=== PATIENT | male | born 1950 | race Caucasian/White ===

== ENCOUNTER 2017-11-10 09:01 | Inpatient (IN) | payer MEDICARE, MEDICAID ==
[2017-11-07 11:09] LABS: BASOPHILS % (AUTO) 0.2 % (0-1); EOSINOPHILS # (AUTO) 0.1 X10'3 (0-0.9); EOSINOPHILS % (AUTO) 1.7 % (0-6); LYMPHOCYTES # (AUTO) 1.3 X10'3 (1.1-4.8); LYMPHOCYTES % (AUTO) 21.8 % (21-51); MEAN CORPUSCULAR HEMOGLOBIN 29.3 PG (27.0-31.0); MEAN CORPUSCULAR HGB CONC 33.6 % (33.0-36.5); MEAN CORPUSCULAR VOLUME 87.3 FL (78-98); MEAN PLATELET VOLUME 7.4 FL (7.4-10.4); MONOCYTES # (AUTO) 0.5 X10'3 (0-0.9); MONOCYTES % (AUTO) 8.7 % (2-12); NEUTROPHILS # (AUTO) 3.9 X10'3 (1.8-7.7); NEUTROPHILS % (AUTO) 67.6 % (42-75); PRE OP PLATELET COUNT 241 X10'3 (140-440); RED BLOOD COUNT 3.75 X10'6 (4.70-6.10); RED CELL DISTRIBUTION WIDTH 15.1 % (11.5-14.5)
[2017-11-07 11:21] LABS: PRE OP HEMATOCRIT 32.8 % (42.0-52.0)
[2017-11-07 11:23] LABS: PRE OP PROTIME 10.3 SECONDS (9.0-12.0)
[2017-11-07 11:26] LABS: ALBUMIN 3.5 G/DL (3.4-5.0); ALKALINE PHOSPHATASE 81 IU/L (46-116); BLOOD UREA NITROGEN 24 MG/DL (7-18); BUN/CREATININE RATIO 19.8 (5.4-32.0); CHLORIDE 102 MMOL/L (99-107); CREATININE 1.21 MG/DL (0.60-1.10); PRE OP ALT 13 U/L (30-65); PRE OP ANION GAP 4 (8-16); PRE OP AST 9 U/L (10-37); PRE OP BILIRUB, TOTAL 0.4 MG/DL (0.0-1.0); PRE OP GLUCOSE 90 MG/DL (70-104); PRE OP POTASSIUM 4.3 MMOL/L (3.4-5.1); PRE OP SODIUM 137 MMOL/L (135-145); TOTAL CARBON DIOXIDE 30.7 MMOL/L (24-32); eGFR 60 ML/MIN
[2017-11-10] VITALS (15 sets, daily range): BP systolic 123–187; BP diastolic 63–114
[~2017-11-10] VITALS: Ht 180.3 cm; Wt 64.4 kg
[~2017-11-10 09:01] MED LIST: ASPI-1265 PO; ATOR40TA72 PO; CARV6.253 PO; DOCUMENT DATE & TIME OF BETA-BLOCKER PO ONE; HYDR-3964 PO; ONDA8TAB13 PO; PANT40TA4 PO; albuterol 2.5 MG/3 ML nebule NEB ONE; ceFAZolin 1GM/D5W- ADD-VANTAGE 50 ML IV ONE; famotidine 20mg tablet PO ONE; neomy sulf/polymyxin B sulf. GU irrigation 1ml amp IR ONE; ringers solution, lacted 1,000 ML IV SCH
[2017-11-10] MEDS: ringers solution, lacted 1,000 ML IV SCH ×2 (11:16→20:40)
[2017-11-10] MEDS ORDERED: sevoflurane 250ml liquid IH ONE (11:20)
[2017-11-10] MEDS ORDERED: dexamethasone sod phosphate 10mg/ml inj ONE (11:20)
[2017-11-10] MEDS ORDERED: ondansetron/PF 4mg/2ml inj IV PRN (11:20)
[2017-11-10] MEDS ORDERED: meperidine/PF 25mg/ml syringe IV PRN ×3 (11:20)
[2017-11-10] MEDS ORDERED: proCHLORperazine 10 MG/2 ml inj IV PRN (11:20)
[2017-11-10] MEDS ORDERED: morphine 4 MG/ML inj SYRINge IV PRN ×2 (11:20)
[2017-11-10] MEDS ORDERED: fentaNYL/PF 50MCG/1 ML 2ML syringe ONE ×2 (11:27→12:33)
[2017-11-10] MEDS ORDERED: midazolam 2 mg/2 ml injection ONE (11:27)
[2017-11-10] MEDS ORDERED: propofol inj 20 ML IV ONE (11:29)
[2017-11-10] MEDS ORDERED: opium/belladonna alkaloids No. 15A 30mg rectal suppository RC PRN (13:40)
[2017-11-10] MEDS: ceFAZolin 1GM/D5W- ADD-VANTAGE 50 ML IV SCH (15:20)
[2017-11-10] MEDS ORDERED: carvedilol 6.25mg tablet PO SCH (19:05)
[2017-11-10] MEDS ORDERED: carvedilol 6.25mg tablet PO ONE (19:05)
[2017-11-10] MEDS: pantoprazole 40mg Tablet.DR PO SCH (20:24)
[2017-11-10] MEDS: ondansetron/PF 4mg/2ml inj IV PRN (20:24)
[2017-11-10] MEDS: HYDROcodone/acetaminophen 10/325mg tab PO PRN (20:26)
[2017-11-10] MEDS ORDERED: hydrALAZINE 20mg/ml inj. IV ONE (21:00)
[2017-11-10] MEDS ORDERED: hydrALAZINE 20mg/ml inj. IV PRN (21:00)
[2017-11-11] VITALS: BP 125/77
[2017-11-11] MEDS: ceFAZolin 1GM/D5W- ADD-VANTAGE 50 ML IV SCH ×2 (00:05→08:12)
[2017-11-11 04:00] VITALS: BP 118/67
[2017-11-11 05:50] LABS: BASOPHILS % (AUTO) 0.1 % (0-1); EOSINOPHILS # (AUTO) 0.1 X10'3 (0-0.9); EOSINOPHILS % (AUTO) 0.7 % (0-6); HEMOGLOBIN 9.5 g/dl (14.0-17.9); MEAN CORPUSCULAR HEMOGLOBIN 29.1 PG (27.0-31.0); MEAN CORPUSCULAR HGB CONC 33.9 % (33.0-36.5); MEAN CORPUSCULAR VOLUME 85.9 FL (78-98); MEAN PLATELET VOLUME 7.5 FL (7.4-10.4); MONOCYTES # (AUTO) 0.7 X10'3 (0-0.9); MONOCYTES % (AUTO) 8.1 % (2-12); NEUTROPHILS # (AUTO) 7.1 X10'3 (1.8-7.7); NEUTROPHILS % (AUTO) 80.1 % (42-75); PLATELET COUNT 221 X10'3 (140-440); RED BLOOD COUNT 3.26 X10'6 (4.70-6.10); RED CELL DISTRIBUTION WIDTH 14.9 % (11.5-14.5); WHITE BLOOD COUNT 8.9 X10'3 (4.5-11.0)
[2017-11-11 06:10] LABS: ALBUMIN 2.8 G/DL (3.4-5.0); ANION GAP 9 (8-16); BLOOD UREA NITROGEN 23 MG/DL (7-18); BUN/CREATININE RATIO 17.3 (5.4-32.0); CALCIUM 8.4 MG/DL (8.5-10.1); CHLORIDE 101 MMOL/L (99-107); CREATININE 1.33 MG/DL (0.60-1.10); GLUCOSE 123 MG/DL (70-104); POTASSIUM 4.6 MMOL/L (3.5-5.1); SODIUM 135 MMOL/L (135-145); TOTAL CARBON DIOXIDE 25.1 MMOL/L (24-32); eGFR 54 ML/MIN
[2017-11-11 07:37] VITALS: BP 113/62
[2017-11-11] MEDS: docusate sod 250mg capsule PO SCH (08:12)
[2017-11-11] MEDS: carvedilol 6.25mg tablet PO SCH (08:12)
[2017-11-11] MEDS: pantoprazole 40mg Tablet.DR PO SCH ×2 (08:12→20:14)
[2017-11-11] MEDS: atorvastatin 20mg tablet PO SCH (08:12)
[2017-11-11] MEDS: HYDROcodone/acetaminophen 10/325mg tab PO PRN ×2 (08:12→20:17)
[2017-11-11 12:44] VITALS: BP 103/59
[2017-11-11 19:00] VITALS: BP 135/69
[2017-11-12] VITALS: BP 117/64
[2017-11-12] MEDS: HYDROcodone/acetaminophen 10/325mg tab PO PRN ×2 (04:54→19:14)
[2017-11-12 05:49] LABS: BASOPHILS % (AUTO) 0.2 % (0-1); EOSINOPHILS # (AUTO) 0.1 X10'3 (0-0.9); EOSINOPHILS % (AUTO) 1.1 % (0-6); HEMATOCRIT 25.2 % (42.0-52.0); HEMOGLOBIN 8.6 g/dl (14.0-17.9); LYMPHOCYTES # (AUTO) 1.3 X10'3 (1.1-4.8); LYMPHOCYTES % (AUTO) 18.7 % (21-51); MEAN CORPUSCULAR HEMOGLOBIN 29.4 PG (27.0-31.0); MEAN CORPUSCULAR HGB CONC 34.1 % (33.0-36.5); MEAN CORPUSCULAR VOLUME 86.4 FL (78-98); MEAN PLATELET VOLUME 7.7 FL (7.4-10.4); MONOCYTES # (AUTO) 0.7 X10'3 (0-0.9); MONOCYTES % (AUTO) 10.6 % (2-12); NEUTROPHILS # (AUTO) 4.9 X10'3 (1.8-7.7); NEUTROPHILS % (AUTO) 69.4 % (42-75); PLATELET COUNT 193 X10'3 (140-440); RED BLOOD COUNT 2.92 X10'6 (4.70-6.10); RED CELL DISTRIBUTION WIDTH 15.5 % (11.5-14.5)
[2017-11-12 06:04] LABS: ALBUMIN 2.9 G/DL (3.4-5.0); ANION GAP 6 (8-16); BLOOD UREA NITROGEN 25 MG/DL (7-18); BUN/CREATININE RATIO 13.9 (5.4-32.0); CALCIUM 8.5 MG/DL (8.5-10.1); CHLORIDE 102 MMOL/L (99-107); GLUCOSE 95 MG/DL (70-104); POTASSIUM 3.9 MMOL/L (3.5-5.1); SODIUM 138 MMOL/L (135-145); TOTAL CARBON DIOXIDE 29.6 MMOL/L (24-32); eGFR 38 ML/MIN
[2017-11-12 07:00] VITALS: BP 100/63
[2017-11-12] MEDS: ondansetron 4mg rapidly disintigrating tab PO PRN ×2 (07:36→17:27)
[2017-11-12] MEDS: pantoprazole 40mg Tablet.DR PO SCH ×2 (09:25→19:55)
[2017-11-12] MEDS: atorvastatin 20mg tablet PO SCH (09:25)
[2017-11-12] MEDS: carvedilol 6.25mg tablet PO SCH (09:25)
[2017-11-12] MEDS: docusate sod 250mg capsule PO SCH (09:25)
[2017-11-12 11:50] VITALS: BP 98/68
[2017-11-12 12:46] LABS: BASOPHILS % (AUTO) 0.3 % (0-1); EOSINOPHILS # (AUTO) 0.1 X10'3 (0-0.9); EOSINOPHILS % (AUTO) 1.7 % (0-6); HEMOGLOBIN 8.4 g/dl (14.0-17.9); LYMPHOCYTES # (AUTO) 1.1 X10'3 (1.1-4.8); LYMPHOCYTES % (AUTO) 19.3 % (21-51); MEAN CORPUSCULAR HEMOGLOBIN 29.1 PG (27.0-31.0); MEAN CORPUSCULAR HGB CONC 33.5 % (33.0-36.5); MEAN CORPUSCULAR VOLUME 86.9 FL (78-98); MONOCYTES # (AUTO) 0.6 X10'3 (0-0.9); MONOCYTES % (AUTO) 11.4 % (2-12); NEUTROPHILS # (AUTO) 3.8 X10'3 (1.8-7.7); NEUTROPHILS % (AUTO) 67.3 % (42-75); PLATELET COUNT 197 X10'3 (140-440); RED BLOOD COUNT 2.87 X10'6 (4.70-6.10); RED CELL DISTRIBUTION WIDTH 15.1 % (11.5-14.5); WHITE BLOOD COUNT 5.6 X10'3 (4.5-11.0)
[2017-11-12 19:00] VITALS: BP 116/72
[2017-11-13] VITALS (21 sets, daily range): BP systolic 100–165; BP diastolic 58–101
[2017-11-13 05:43] LABS: BASOPHILS % (AUTO) 0.3 % (0-1); EOSINOPHILS # (AUTO) 0.2 X10'3 (0-0.9); EOSINOPHILS % (AUTO) 2.6 % (0-6); HEMATOCRIT 24.3 % (42.0-52.0); HEMOGLOBIN 8.2 g/dl (14.0-17.9); LYMPHOCYTES # (AUTO) 1.3 X10'3 (1.1-4.8); LYMPHOCYTES % (AUTO) 21.3 % (21-51); MEAN CORPUSCULAR HEMOGLOBIN 29.3 PG (27.0-31.0); MEAN CORPUSCULAR HGB CONC 33.9 % (33.0-36.5); MEAN CORPUSCULAR VOLUME 86.5 FL (78-98); MEAN PLATELET VOLUME 7.7 FL (7.4-10.4); MONOCYTES # (AUTO) 0.7 X10'3 (0-0.9); MONOCYTES % (AUTO) 12.1 % (2-12); NEUTROPHILS # (AUTO) 3.8 X10'3 (1.8-7.7); NEUTROPHILS % (AUTO) 63.7 % (42-75); PLATELET COUNT 194 X10'3 (140-440); RED BLOOD COUNT 2.81 X10'6 (4.70-6.10)
[2017-11-13 05:54] LABS: ALBUMIN 2.9 G/DL (3.4-5.0); ANION GAP 6 (8-16); BLOOD UREA NITROGEN 22 MG/DL (7-18); BUN/CREATININE RATIO 12.9 (5.4-32.0); CALCIUM 8.1 MG/DL (8.5-10.1); CHLORIDE 99 MMOL/L (99-107); CREATININE 1.71 MG/DL (0.60-1.10); GLUCOSE 93 MG/DL (70-104); SODIUM 134 MMOL/L (135-145); TOTAL CARBON DIOXIDE 28.8 MMOL/L (24-32); eGFR 40 ML/MIN
[2017-11-13] MEDS: ondansetron/PF 4mg/2ml inj IV PRN (06:37)
[2017-11-13] MEDS: HYDROcodone/acetaminophen 10/325mg tab PO PRN ×2 (06:40→16:36)
[2017-11-13] MEDS: pantoprazole 40mg Tablet.DR PO SCH ×2 (07:51→19:22)
[2017-11-13] MEDS: atorvastatin 20mg tablet PO SCH (07:51)
[2017-11-13] MEDS: carvedilol 6.25mg tablet PO SCH (07:51)
[2017-11-13] MEDS: docusate sod 250mg capsule PO SCH (07:52)
[2017-11-13] MEDS ORDERED: famotidine 20mg tablet PO ONE (10:45)
[2017-11-13 10:58] LABS: BASOPHILS % (AUTO) 0.4 % (0-1); EOSINOPHILS # (AUTO) 0.1 X10'3 (0-0.9); EOSINOPHILS % (AUTO) 2.2 % (0-6); LYMPHOCYTES # (AUTO) 1.3 X10'3 (1.1-4.8); LYMPHOCYTES % (AUTO) 22.3 % (21-51); MEAN CORPUSCULAR HEMOGLOBIN 29.1 PG (27.0-31.0); MEAN CORPUSCULAR HGB CONC 33.5 % (33.0-36.5); MEAN CORPUSCULAR VOLUME 86.9 FL (78-98); MEAN PLATELET VOLUME 7.4 FL (7.4-10.4); MONOCYTES # (AUTO) 0.7 X10'3 (0-0.9); MONOCYTES % (AUTO) 10.9 % (2-12); NEUTROPHILS # (AUTO) 3.8 X10'3 (1.8-7.7); NEUTROPHILS % (AUTO) 64.2 % (42-75); PRE OP HEMATOCRIT 24.5 % (42.0-52.0); PRE OP PLATELET COUNT 206 X10'3 (140-440); RED BLOOD COUNT 2.82 X10'6 (4.70-6.10); RED CELL DISTRIBUTION WIDTH 14.7 % (11.5-14.5)
[2017-11-13 11:02] LABS: PRE OP HEMOGLOBIN 8.2 g/dL (14.0-17.9)
[2017-11-13 11:07] LABS: PRE OP PROTIME 10.2 SECONDS (9.0-12.0)
[2017-11-13 11:13] LABS: ALBUMIN 2.8 G/DL (3.4-5.0); ALBUMIN/GLOBULIN RATIO 0.9 (1.1-1.5); ALKALINE PHOSPHATASE 71 IU/L (46-116); BLOOD UREA NITROGEN 21 MG/DL (7-18); BUN/CREATININE RATIO 13.6 (5.4-32.0); CALCIUM 8.2 MG/DL (8.5-10.1); CHLORIDE 99 MMOL/L (99-107); CREATININE 1.54 MG/DL (0.60-1.10); PRE OP ALT 9 U/L (30-65); PRE OP ANION GAP 7 (8-16); PRE OP AST 10 U/L (10-37); PRE OP BILIRUB, TOTAL 0.4 MG/DL (0.0-1.0); PRE OP GLUCOSE 98 MG/DL (70-104); PRE OP POTASSIUM 4.1 MMOL/L (3.4-5.1); PRE OP SODIUM 134 MMOL/L (135-145); TOTAL CARBON DIOXIDE 27.7 MMOL/L (24-32); TOTAL PROTEIN 5.8 G/DL (6.4-8.2); eGFR 46 ML/MIN
[2017-11-13] MEDS ORDERED: LIDOcaine 2% 10ml TOPICAL JELLY (Urojet) ONE ×3 (13:02→13:32)
[2017-11-13] MEDS ORDERED: desflurane 240ml liquid inh. IH ONE (13:45)
[2017-11-13] MEDS ORDERED: midazolam 2 mg/2 ml injection ONE (13:57)
[2017-11-13] MEDS ORDERED: fentaNYL/PF 50MCG/1 ML 2ML syringe ONE (13:57)
[2017-11-13] MEDS ORDERED: propofol inj 20 ML IV ONE (14:00)
[2017-11-13] MEDS ORDERED: LIDOcaine 1%/PF 5ML 10 MG/ML VIAL ONE (14:00)
[2017-11-13] MEDS ORDERED: ringers solution, lacted 1,000 ML IV SCH (14:27)
[2017-11-13] MEDS ORDERED: proCHLORperazine 10 MG/2 ml inj IV PRN (14:30)
[2017-11-13] MEDS ORDERED: morphine 4 MG/ML inj SYRINge IV PRN (14:30)
[2017-11-13] MEDS ORDERED: meperidine/PF 25mg/ml syringe IV PRN ×3 (14:30)
[2017-11-13] MEDS ORDERED: ondansetron/PF 4mg/2ml inj IV PRN (14:30)
[2017-11-13] MEDS: morphine 4 MG/ML inj SYRINge IV PRN ×2 (15:53→15:58)
[2017-11-14 00:30] VITALS: BP 139/81
[2017-11-14 04:47] VITALS: BP 137/76
[2017-11-14 05:55] LABS: BASOPHILS % (AUTO) 0.1 % (0-1); EOSINOPHILS # (AUTO) 0.1 X10'3 (0-0.9); EOSINOPHILS % (AUTO) 1.6 % (0-6); HEMATOCRIT 26.3 % (42.0-52.0); LYMPHOCYTES # (AUTO) 0.8 X10'3 (1.1-4.8); LYMPHOCYTES % (AUTO) 9.3 % (21-51); MEAN CORPUSCULAR HEMOGLOBIN 29.2 PG (27.0-31.0); MEAN CORPUSCULAR VOLUME 85.9 FL (78-98); MEAN PLATELET VOLUME 7.6 FL (7.4-10.4); MONOCYTES # (AUTO) 0.8 X10'3 (0-0.9); MONOCYTES % (AUTO) 9.5 % (2-12); NEUTROPHILS # (AUTO) 6.8 X10'3 (1.8-7.7); NEUTROPHILS % (AUTO) 79.5 % (42-75); PLATELET COUNT 222 X10'3 (140-440); RED BLOOD COUNT 3.07 X10'6 (4.70-6.10); RED CELL DISTRIBUTION WIDTH 14.8 % (11.5-14.5); WHITE BLOOD COUNT 8.5 X10'3 (4.5-11.0)
[2017-11-14 06:09] LABS: ANION GAP 7 (8-16); BLOOD UREA NITROGEN 19 MG/DL (7-18); BUN/CREATININE RATIO 12.6 (5.4-32.0); CALCIUM 8.6 MG/DL (8.5-10.1); CHLORIDE 100 MMOL/L (99-107); CREATININE 1.51 MG/DL (0.60-1.10); GLUCOSE 109 MG/DL (70-104); POTASSIUM 4.5 MMOL/L (3.5-5.1); SODIUM 136 MMOL/L (135-145); TOTAL CARBON DIOXIDE 29.3 MMOL/L (24-32); eGFR 47 ML/MIN
[2017-11-14 07:01] VITALS: BP 143/80
[2017-11-14] MEDS: atorvastatin 20mg tablet PO SCH (07:09)
[2017-11-14] MEDS: docusate sod 250mg capsule PO SCH (07:09)
[2017-11-14] MEDS: pantoprazole 40mg Tablet.DR PO SCH (07:09)
[2017-11-14] MEDS: carvedilol 6.25mg tablet PO SCH (07:10)
[2017-11-14] MEDS: HYDROcodone/acetaminophen 10/325mg tab PO PRN (07:10)
[2017-11-14 11:09] VITALS: BP 109/57
[2017-11-14] MEDS ORDERED: DOCU-28 PO (12:05)
[2017-12-19] MEDS ORDERED: DOCU100C40 PO (11:32)
[2017-12-21] MEDS ORDERED: POLY17PO10 PO (12:20)
[2017-12-22] MEDS ORDERED: HYDR-569 PO (07:30)
[2017-12-22] MEDS ORDERED: SULF1TAB49 PO (07:30)
== END 2017-11-14 15:06 | disposition home or self-care (01) | DRG 669 ==
LOC: PAS 09:01 → SUR 3N 13:38 → PAS 11-11 11:49 → SUR 3N 11-12 23:02 → PACU 11-13 13:30 → SUR 3N 11-13 16:06
PROVIDERS: ADMIT Urology; ATTEND Urology
PROC: 0TBB8ZZ Excision of Bladder, Via Natural or Artificial Opening Endoscopic (ICD-10-PCS; principal; 2017-11-10 11:24)
PROC: 0TBB8ZZ Excision of Bladder, Via Natural or Artificial Opening Endoscopic (ICD-10-PCS; 2017-11-13)
PROC: 0TCB8ZZ Extirpation of Matter from Bladder, Via Natural or Artificial Opening Endoscopic (ICD-10-PCS; 2017-11-13)
PROC: 0T5B8ZZ Destruction of Bladder, Via Natural or Artificial Opening Endoscopic (ICD-10-PCS; 2017-11-13)
DX: C67.8 Malignant neoplasm of overlapping sites of bladder (principal); Z68.1 Body mass index [BMI] 19.9 or less, adult; I10 Essential (primary) hypertension; R31.0 Gross hematuria; R58 Hemorrhage, not elsewhere classified; R63.4 Abnormal weight loss; N32.3 Diverticulum of bladder; I25.10 Atherosclerotic heart disease of native coronary artery without angina pectoris; F17.210 Nicotine dependence, cigarettes, uncomplicated; Z79.82 Long term (current) use of aspirin; Z79.899 Other long term (current) drug therapy; Z85.51 Personal history of malignant neoplasm of bladder
CPT/HCPCS: 36415; 71046; 80048; 80053; 85025; 85610; 85730; 86870; 86885; 86900; 86901; 86905; 86920; 86922; 88307; A4346; A4355; A4402; A6212; A6255; J0690; J1100; J2001; J2250; J2270; J2405; J2704; J3010; J7030; J7060; J7120

== ENCOUNTER 2018-03-02 08:11 | Day surgery (SDC) | payer MEDICARE, MEDICAID ==
[2018-02-26 11:24] LABS: BASOPHILS % (AUTO) 0.4 % (0-1); EOSINOPHILS # (AUTO) 0.2 X10'3 (0-0.9); EOSINOPHILS % (AUTO) 2.3 % (0-6); LYMPHOCYTES # (AUTO) 1.6 X10'3 (1.1-4.8); LYMPHOCYTES % (AUTO) 21.8 % (21-51); MEAN CORPUSCULAR HEMOGLOBIN 27.8 PG (27.0-31.0); MEAN CORPUSCULAR HGB CONC 33.2 % (33.0-36.5); MEAN CORPUSCULAR VOLUME 83.8 FL (78-98); MEAN PLATELET VOLUME 7.3 FL (7.4-10.4); MONOCYTES # (AUTO) 0.7 X10'3 (0-0.9); MONOCYTES % (AUTO) 9.3 % (2-12); NEUTROPHILS # (AUTO) 4.7 X10'3 (1.8-7.7); NEUTROPHILS % (AUTO) 66.2 % (42-75); PRE OP HEMATOCRIT 35.7 % (42.0-52.0); PRE OP HEMOGLOBIN 11.9 g/dL (14.0-17.9); PRE OP PLATELET COUNT 272 X10'3 (140-440); RED BLOOD COUNT 4.26 X10'6 (4.70-6.10); RED CELL DISTRIBUTION WIDTH 18.2 % (11.5-14.5)
[2018-02-26 11:41] LABS: ALBUMIN 3.7 G/DL (3.4-5.0); ALBUMIN/GLOBULIN RATIO 1.1 (1.1-1.5); ALKALINE PHOSPHATASE 93 IU/L (46-116); BLOOD UREA NITROGEN 14 MG/DL (7-18); CALCIUM 8.5 MG/DL (8.5-10.1); CHLORIDE 99 MMOL/L (99-107); CREATININE 1.17 MG/DL (0.60-1.10); PRE OP ALT 21 U/L (30-65); PRE OP ANION GAP 3 (8-16); PRE OP AST 14 U/L (10-37); PRE OP BILIRUB, TOTAL 0.3 MG/DL (0.0-1.0); PRE OP GLUCOSE 91 MG/DL (70-104); PRE OP POTASSIUM 4.4 MMOL/L (3.4-5.1); PRE OP SODIUM 133 MMOL/L (135-145); TOTAL CARBON DIOXIDE 31.4 MMOL/L (24-32); TOTAL PROTEIN 7.1 G/DL (6.4-8.2); eGFR 62 ML/MIN
[~2018-03-02] VITALS: Ht 180.3 cm; Wt 64.4 kg
[2018-03-02] VITALS (8 sets, daily range): BP systolic 131–143; BP diastolic 70–82
[~2018-03-02 08:11] MED LIST changes: -ASPI-1265 PO; +ONDA4TAB11 PO; -ONDA8TAB13 PO; +POLY17PO10 PO; -ceFAZolin 1GM/D5W- ADD-VANTAGE 50 ML IV ONE; +ceFAZolin inj. 1,000 MG in dextrose 5%-water 50ml 50 ML IV ONE; -neomy sulf/polymyxin B sulf. GU irrigation 1ml amp IR ONE
[2018-03-02] MEDS ORDERED: ringers solution, lacted 1,000 ML IV SCH (10:46)
[2018-03-02] MEDS ORDERED: proCHLORperazine 10 MG/2 ml inj IV PRN (10:50)
[2018-03-02] MEDS ORDERED: morphine 4 MG/ML inj SYRINge IV PRN ×2 (10:50)
[2018-03-02] MEDS ORDERED: ondansetron/PF 4mg/2ml inj IV PRN (10:50)
[2018-03-02] MEDS ORDERED: meperidine/PF 25mg/ml syringe IV PRN ×3 (10:50)
[2018-03-02] MEDS ORDERED: dexamethasone sod phosphate 10mg/ml inj ONE (11:00)
[2018-03-02] MEDS ORDERED: sevoflurane 250ml liquid IH ONE (11:00)
[2018-03-02] MEDS ORDERED: fentaNYL/PF 50MCG/1 ML 2ML syringe ONE (11:09)
[2018-03-02] MEDS ORDERED: midazolam 2 mg/2 ml injection ONE (11:09)
[2018-03-02] MEDS ORDERED: propofol inj 20 ML IV ONE (11:11)
== END 2018-03-02 13:00 | disposition home or self-care (01) ==
LOC: PAS 08:11
PROVIDERS: ATTEND Urology
DX: N99.114 Postprocedural urethral stricture, male, unspecified (principal); I25.2 Old myocardial infarction; I10 Essential (primary) hypertension; I25.10 Atherosclerotic heart disease of native coronary artery without angina pectoris; F17.210 Nicotine dependence, cigarettes, uncomplicated; E78.5 Hyperlipidemia, unspecified; K21.9 Gastro-esophageal reflux disease without esophagitis; N40.0 Benign prostatic hyperplasia without lower urinary tract symptoms; F10.21 Alcohol dependence, in remission; J44.9 Chronic obstructive pulmonary disease, unspecified; M19.90 Unspecified osteoarthritis, unspecified site; Z85.51 Personal history of malignant neoplasm of bladder; Z79.891 Long term (current) use of opiate analgesic; Z79.82 Long term (current) use of aspirin; Z96.698 Presence of other orthopedic joint implants; Z79.899 Other long term (current) drug therapy; Z98.890 Other specified postprocedural states
CPT/HCPCS: 36415; 52281; 80053; 85025; 93005; 94640; 94760; A6258; J0690; J1100; J2250; J2704; J3010; J7030; J7060; J7120; A4402

== ENCOUNTER 2018-09-07 11:01 | Observation (INO) | payer MEDICARE ==
[2018-08-31 15:52] LABS: ALBUMIN 3.8 G/DL (3.4-5.0); ALBUMIN/GLOBULIN RATIO 1.1 (1.1-1.5); ALKALINE PHOSPHATASE 81 IU/L (46-116); BLOOD UREA NITROGEN 20 MG/DL (7-18); BUN/CREATININE RATIO 17.9 (5.4-32.0); CHLORIDE 99 MMOL/L (99-107); CREATININE 1.12 MG/DL (0.60-1.10); PRE OP ALT 19 U/L (30-65); PRE OP ANION GAP 5 (8-16); PRE OP AST 12 U/L (10-37); PRE OP BILIRUB, TOTAL 0.3 MG/DL (0.0-1.0); PRE OP GLUCOSE 133 MG/DL (70-104); PRE OP POTASSIUM 4.5 MMOL/L (3.4-5.1); PRE OP SODIUM 134 MMOL/L (135-145); TOTAL CARBON DIOXIDE 30.2 MMOL/L (24-32); TOTAL PROTEIN 7.2 G/DL (6.4-8.2); eGFR 66 ML/MIN
[2018-08-31 16:12] LABS: BASOPHILS % (AUTO) 0.7 % (0-1); EOSINOPHILS # (AUTO) 0.1 X10'3 (0-0.9); EOSINOPHILS % (AUTO) 2.1 % (0-6); LYMPHOCYTES % (AUTO) 27.6 % (21-51); MEAN CORPUSCULAR HEMOGLOBIN 28.2 PG (27.0-31.0); MEAN CORPUSCULAR HGB CONC 33.9 g/dL (33.0-36.5); MEAN CORPUSCULAR VOLUME 83.2 FL (78-98); MEAN PLATELET VOLUME 7.4 FL (7.4-10.4); MONOCYTES # (AUTO) 0.6 X10'3 (0-0.9); MONOCYTES % (AUTO) 8.5 % (2-12); NEUTROPHILS # (AUTO) 4.4 X10'3 (1.8-7.7); NEUTROPHILS % (AUTO) 61.1 % (42-75); PRE OP HEMATOCRIT 39.3 % (42.0-52.0); PRE OP HEMOGLOBIN 13.3 g/dL (14.0-17.9); PRE OP PLATELET COUNT 263 X10'3 (140-440); RED BLOOD COUNT 4.72 X10'6 (4.70-6.10)
[~2018-09-07] VITALS: Ht 180.3 cm; Wt 63.1 kg
[2018-09-07] VITALS (18 sets, daily range): BP systolic 105–157; BP diastolic 65–86
[~2018-09-07 11:01] MED LIST changes: +ASPI-611 PO; +FLO0.4C PO; +LOSA25TA41 PO; -POLY17PO10 PO; -albuterol 2.5 MG/3 ML nebule NEB ONE; +ceFAZolin 1GM/D5W- ADD-VANTAGE 50 ML IV ONE; -ceFAZolin inj. 1,000 MG in dextrose 5%-water 50ml 50 ML IV ONE; -ringers solution, lacted 1,000 ML IV SCH
[2018-09-07] MEDS: ringers solution, lacted 1,000 ML IV SCH ×2 (12:08→17:44)
[2018-09-07] MEDS ORDERED: ringers solution, lacted 1,000 ML IV SCH (12:57)
[2018-09-07] MEDS ORDERED: morphine 4 MG/ML inj SYRINge IV PRN ×2 (13:00)
[2018-09-07] MEDS ORDERED: meperidine/PF 25mg/ml syringe IV PRN ×3 (13:00)
[2018-09-07] MEDS ORDERED: ondansetron/PF 4mg/2ml inj IV PRN ×2 (13:00→15:45)
[2018-09-07] MEDS ORDERED: proCHLORperazine 10 MG/2 ml inj IV PRN (13:00)
[2018-09-07] MEDS ORDERED: dexamethasone sod phosphate 10mg/ml inj ONE (13:43)
[2018-09-07] MEDS ORDERED: sevoflurane 250ml liquid IH ONE (13:43)
[2018-09-07] MEDS ORDERED: midazolam 2 mg/2 ml injection ONE (13:53)
[2018-09-07] MEDS ORDERED: fentaNYL/PF 50MCG/1 ML 2ML syringe ONE (13:53)
[2018-09-07] MEDS ORDERED: LIDOcaine 1%/PF 5ML 10 MG/ML VIAL ONE (13:54)
[2018-09-07] MEDS ORDERED: propofol inj 20 ML IV ONE (13:54)
--- NOTE | 2018-09-07 15:35 | NUR ---
Received from OR via , accompanied by Anesthesiologist DR VAZQUEZ and report given by Anesthesiolgist. AWAKEN TO VOICE. VITALS STABLE. LIZBETH PAIN. CBI WITH CLEAR LENKA IN THE BAG.
[2018-09-07] MEDS ORDERED: oxybutynin 5mg tablet PO PRN (15:45)
[2018-09-07] MEDS ORDERED: ceFAZolin inj. 1,000 MG in dextrose 5%-water 50ml 50 ML IV SCH (16:00)
[2018-09-07] MEDS ORDERED: ceFAZolin 2gm in dextrose, iso 100 ML IV SCH (16:00)
--- NOTE | 2018-09-07 16:53 | NUR ---
Patient in room . I have received report from RODDY Lee and had the opportunity to ask questions and assume patient care.
--- NOTE | 2018-09-07 16:55 | NUR ---
Report called to receiving nurse. Transferred via BED Belongings . Special Issues communicated to receiving nurse. AWAKE AND ORIENTED.VITALS STABLE. STATES ONLY MIN DISCOMFORT. TO SURGICAL [facility] 360A AT THIS TIME.
[2018-09-07] MEDS ORDERED: HYDROcodone/acetaminophen 5mg/325mg tablet PO PRN (17:15)
[2018-09-07] MEDS ORDERED: HYDROmorphone 1 mg/ml syringe IV PRN (17:30)
[2018-09-07] MEDS: HYDROcodone/acetaminophen 5mg/325mg tablet PO PRN (17:37)
[2018-09-07] MEDS: ceFAZolin 1GM/D5W- ADD-VANTAGE 50 ML IV SCH ×2 (17:48→23:05)
--- NOTE | 2018-09-07 18:30 | NUR ---
Patient in room [facility]. I have received report from Nathalie PEREYRA and had the opportunity to ask questions and assume patient care.
--- NOTE | 2018-09-07 18:40 | NUR ---
Problems reprioritized. Patient report given, questions answered & plan of care reviewed with RODDY Hodge.
[2018-09-07] MEDS: pantoprazole 40mg Tablet.DR PO SCH (19:15)
[2018-09-07] MEDS: ondansetron 4mg rapidly disintigrating tab PO SCH (19:15)
[2018-09-07] MEDS: tamsulosin 0.4mg capsule PO SCH (19:15)
[2018-09-07] MEDS ORDERED: non-formulary drug (Ondansetron HCl 1 TAB) PO SCH (20:00)
[2018-09-08] VITALS: BP 116/67
[2018-09-08] MEDS: HYDROcodone/acetaminophen 5mg/325mg tablet PO PRN (00:04)
[2018-09-08 04:30] VITALS: BP 138/80
--- NOTE | 2018-09-08 05:34 | NUR ---
pATIENT HAS REFUSED THIS SHIFT TO CHANGE OUT OF STERILE PURPLE SURGICAL ATTIRE THAT HE ARRIVED IN FROM RECOVERY ROOM.
--- NOTE | 2018-09-08 06:20 | NUR ---
Patient in room [facility]. I have received report from RODDY Hodge and had the opportunity to ask questions and assume patient care.
[2018-09-08 06:30] VITALS: BP 117/61
--- NOTE | 2018-09-08 06:51 | NUR ---
Problems reprioritized. Patient report given, questions answered & plan of care reviewed with Juliette PEREYRA
[2018-09-08] MEDS ORDERED: atorvastatin 20mg tablet PO SCH (08:00)
[2018-09-08] MEDS ORDERED: carvedilol 6.25mg tablet PO SCH (08:00)
[2018-09-08] MEDS ORDERED: losartan 25mg tablet PO SCH (08:00)
[2018-09-08] MEDS ORDERED: ATORVASTATIN CALCIUM 40 MG PO SCH (08:00)
[2018-09-08] MEDS ORDERED: DOCU-28 PO (09:57)
[2018-09-08] MEDS: tamsulosin 0.4mg capsule PO SCH (10:35)
[2018-09-08] MEDS: pantoprazole 40mg Tablet.DR PO SCH (10:35)
[2018-09-08] MEDS: ondansetron 4mg rapidly disintigrating tab PO SCH (10:35)
[2018-09-08] MEDS: ceFAZolin 1GM/D5W- ADD-VANTAGE 50 ML IV SCH (10:36)
[2018-09-08 10:49] LABS: BASOPHILS % (AUTO) 0 % (0-1); EOSINOPHILS % (AUTO) 0 % (0-6); HEMATOCRIT 36.5 % (42.0-52.0); HEMOGLOBIN 12.1 g/dl (14.0-17.9); LYMPHOCYTES # (AUTO) 0.9 X10'3 (1.1-4.8); LYMPHOCYTES % (AUTO) 7.4 % (21-51); MEAN CORPUSCULAR HEMOGLOBIN 27.6 PG (27.0-31.0); MEAN CORPUSCULAR HGB CONC 33.1 g/dL (33.0-36.5); MEAN CORPUSCULAR VOLUME 83.5 FL (78-98); MEAN PLATELET VOLUME 7.4 FL (7.4-10.4); MONOCYTES # (AUTO) 0.9 X10'3 (0-0.9); MONOCYTES % (AUTO) 7.4 % (2-12); NEUTROPHILS # (AUTO) 9.9 X10'3 (1.8-7.7); NEUTROPHILS % (AUTO) 85.2 % (42-75); PLATELET COUNT 235 X10'3 (140-440); RED BLOOD COUNT 4.37 X10'6 (4.70-6.10); RED CELL DISTRIBUTION WIDTH 15.8 % (11.5-14.5); WHITE BLOOD COUNT 11.6 X10'3 (4.5-11.0)
[2018-09-08 11:30] VITALS: BP 137/72
[2018-09-08 12:28] LABS: ALBUMIN 3.1 G/DL (3.4-5.0); ANION GAP 8 (8-16); BLOOD UREA NITROGEN 18 MG/DL (7-18); BUN/CREATININE RATIO 17.1 (5.4-32.0); CALCIUM 8.6 MG/DL (8.5-10.1); CHLORIDE 100 MMOL/L (99-107); CREATININE 1.05 MG/DL (0.60-1.10); GLUCOSE 128 MG/DL (70-104); POTASSIUM 4.1 MMOL/L (3.5-5.1); SODIUM 136 MMOL/L (135-145); TOTAL CARBON DIOXIDE 27.9 MMOL/L (24-32); eGFR 71 ML/MIN
--- NOTE | 2018-09-08 13:35 | NUR ---
DC inst provided to pt. IV DC'd, tip intact. All belongings sent w/pt. WC to front lobby.
== END 2018-09-08 13:36 | disposition home or self-care (01) ==
LOC: PAS 11:01 → SUR 3N 15:47
PROVIDERS: ADMIT Urology; ATTEND Urology
DX: D49.4 Neoplasm of unspecified behavior of bladder (principal)
CPT/HCPCS: 36415; 52240; 71046; 80048; 80053; 82948; 85025; 96365; 96366; 96375; G0378; J0690; J1100; J2001; J2175; J2250; J2704; J3010; J7120; 88307; A4344; A4402; J7030